=== PATIENT | female | born 1975 | race Caucasian/White ===

== ENCOUNTER 2017-03-28 07:22 | Day surgery (SDC) | payer OTHER ==
[~2017-03-28] VITALS: Ht 162.6 cm; Wt 86.1 kg
[~2017-03-28 07:22] MED LIST: ACETAMINOPHEN325 M1 PO; AUGMENTIN875 MG PO; ENDOCET 5-3251 EACH PO; ESTRACE0.5 MG PO; FEOSOL325 MG PO; FIORICET,ESG1 TABLET PO; MOTRIN800 MG PO; PREDNISONE1 MG PO; PROCTOFOAM-HC10 GM PR; THERAGRAN1 TABLET PO; TRAMADOL HCL50 MG PO; TROKENDI XR25 MG PO; TROKENDI XR50 MG PO; VALTREX1000 MG PO; WELLBUTRIN SR150 MG PO; WELLBUTRIN75 MG PO
[2017-03-28 07:39] VITALS: BP 141/75
[2017-03-28] MEDS ORDERED: NORCO 5/3251 TABLET PO (10:41)
[2017-03-28 11:26] VITALS: BP 109/70
[2017-03-28 12:26] VITALS: BP 112/72
[2017-03-28 13:10] VITALS: BP 104/61
== END 2017-03-28 13:15 | disposition home or self-care (01) ==
LOC: 2SOUTH → SDC 07:22 → EDSTATUS 08:15 → SDC 08:16 → 2SOUTH 10:27 → SDC 13:15 → 2SOUTH 16:07
DX: K63.9 Disease of intestine, unspecified (principal); K66.0 Peritoneal adhesions (postprocedural) (postinfection); F41.9 Anxiety disorder, unspecified; Z85.43 Personal history of malignant neoplasm of ovary; Z82.49 Family history of ischemic heart disease and other diseases of the circulatory system; Z83.49 Family history of other endocrine, nutritional and metabolic diseases
CPT/HCPCS: 88305; J0330; J0690; J1100; J1200; J1885; J2175; J2250; J2405; J2710; J3010